=== PATIENT | male | born 1945 | race African-American/Black ===

== ENCOUNTER 2018-03-07 10:55 | Inpatient (IN) | payer OTHER ==
[~2018-03-07] VITALS: Ht 152.4 cm; Wt 127.0 kg
--- NOTE | ~2018-03-07 | EKG ---
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
--- NOTE | ~2018-03-07 | 2DMMODE ---
[facility] [address] [place] [address] 2 D/M-MODE ECHOCARDIOGRAM Name: ALFA LORENZ Room #: 458-P [facility]#: [id number] Admission: 03/07/18 Attend Phys: Bakari Joy MD Discharge: Date of : 47 Date of Service: 03/08/18 1125 Report #: [id number] THIS REPORT FOR: //name// APPROVED REPORT Study performed: 03/08/2018 10:14:21 EXAM: Comprehensive 2D, Doppler, and color-flow Echocardiogram Patient Location: Bedside Room #: [facility] Status: routine BSA: 2.46 HR: 90 bpm BP: 152/71 mmHg Other Information Study Quality: Technically Difficult Technically limited study due to body habitus. Indications COPD Diabetes Dyspnea CAD Hypertension/HDD Elevated BNP, history [place] Echo Enhancing Agent Indication: Endocardial border delineation Agent(s) / Amount(s) Used: Optison 3 cc 2D Dimensions RVDd: 44.11 mm LVEF(%): 35.40 (>50%) IVSd: 17.98 (7-11mm) LVOT Diam: 22.19 (18-24mm) LVDd: 46.01 mm PWd: 17.17 (7-11mm) LVDs: 38.24 (25-40mm) Aortic Root: 30.15 mm IVC: 23.00 mm Evans's LVEF: 35.40 % Volumes Left Atrial Volume (Systole) Single Plane 4CH: 76.62 mL Single Plane 2CH: 82.46 mL LA ESV Index: 37.00 mL/m2 [facility] [place] [address] [address] 2 D/M-MODE ECHOCARDIOGRAM Name: ALFA LORENZ Room #: 458-P [facility]#: [id number] Admission: 03/07/18 Attend Phys: Bakari Joy MD Discharge: Date of : 47 Date of Service: 03/08/18 1125 Report #: [id number] Aortic Valve AoV Peak David.: 1.40 m/s AO Peak Gr.: 7.87 mmHg LVOT Max P.21 mmHg LVOT Max V: 0.90 m/s CHELE Vmax: 2.47 cm2 Mitral Valve E/A Ratio: 1.4 MV Decel. Time: 193.92 ms MV E Max David.: 1.25 m/s MV A David.: 0.92 m/s MV PHT: 56.24 ms IVRT: 59.98 ms Pulmonary Valve PV Peak David.: 1.13 m/s PV Peak Gr.: 5.11 mmHg Pulmonary Vein P Vein S: 0.78 m/s P Vein A: 0.18 m/s P Vein D: 0.73 m/s P Vein A Dur.: 134.9 msec P Vein S/D Ratio: 1.07 Tricuspid Valve TR Peak David.: 3.61 m/s RAP Estimate: 10.00 mmHg TR Peak Gr.: 52.11 mmHg PA Pressure: 62.00 mmHg Left Ventricle The left ventricle is normal size. Moderate concentric left ventricular hypertrophy. Left ventricular systolic function is borderline. LVEF is 45-50%. Moderate diastolic dysfunction is present (pseudonormal filling). Right Ventricle Right ventricle is dilated. The right ventricular systolic function is normal. Atria Left atrium is dilated. Right atrium is dilated. Aortic Valve The aortic valve is normal in structure. No aortic regurgitation is present. There is no aortic valvular stenosis. Mitral Valve [facility] [address] [place] [address] 2 D/M-MODE ECHOCARDIOGRAM Name: GERDAALFA Room #: 458-P [facility].#: [id number] Admission: 03/07/18 Attend Phys: Bakari Joy MD Discharge: Date of : 47 Date of Service: 03/08/18 1125 Report #: [id number] The mitral valve is normal in structure. Moderate mitral regurgitation. No evidence of mitral valve stenosis. Tricuspid Valve The tricuspid valve is normal in structure. Mild tricuspid regurgitation. PAP is estimated at 62 mmHg. Pulmonic Valve Pulmonic valve is not well visualized. There is no pulmonic valvular regurgitation visualized. Great Vessels The aortic root is normal in size. IVC is dilated and collapses >50% with inspiration. Pericardium There is no pericardial effusion. <Conclusion> The left ventricle is normal size. LVEF is 45-50%. Right ventricle is dilated. The right ventricular systolic function is normal. Left atrium is dilated. Right atrium is dilated. The aortic valve is normal in structure. The mitral valve is normal in structure. Moderate mitral regurgitation. The tricuspid valve is normal in structure. Mild tricuspid regurgitation. PAP is estimated at 62 mmHg. Pulmonic valve is not well visualized. There is no pericardial effusion. <ELECTRONICALLY SIGNED> By: Phani Villatoro MD 03/08/18 1125 1125 1125 Phani Villatoro MD /INF
[~2018-03-07 10:55] MED LIST: ASPIRIN EC81 M1; CARVEDILOL3.125 MG; KEFLEX500 MG PO; LISINOPRIL2.5 MG; PLAVIX 75 MG TA75 M1; SIMVASTATIN5 MG; ZANTAC 25MG2.5 MG/M1
[2018-03-07 10:56] VITALS: BP 165/77
[2018-03-07 11:31] LABS: HEMATOCRIT 44.6 % (42.0-52.0); HEMOGLOBIN 14.8 gm/dL (14.0-18.0); MCH 31.6 pg (26.0-34.0); MCHC 33.1 g/dL (28.0-37.0); MCV 95.5 fL (80.0-100.0); RBC 4.68 mil/uL (4.50-6.00); RDW 14.4 % (10.5-14.5); WBC 4.6 thou/uL (4.0-11.0)
[2018-03-07 11:38] LABS: ANION GAP 9 mmol/L (7-16); BUN 16 mg/dL (7-18); CALCIUM 8.6 mg/dL (8.5-10.1); CHLORIDE 108 mmol/L (98-107); CO2 25 mmol/L (21-32); GLUCOSE 188 mg/dL (74-106); SODIUM 142 mmol/L (136-145)
[2018-03-07 11:47] LABS: TROPONIN-I < 0.04 ng/mL (<0.06)
[2018-03-07 11:51] LABS: BE(vivo) -1.6 mmol/L (-2 to +3); HCO3 23.9 mmol/L (22.0-26.0); PCO2 43.1 mmHg (35.0-45.0); PO2 56.9 mmHg (80.0-100.0); pH 7.362 (7.360-7.450); sO2 88.6 % (92.0-98.0)
[2018-03-07] MEDS ORDERED: ATORVASTATIN CA80 MG PO (12:45)
[2018-03-07] MEDS ORDERED: ZANTAC 150MG T150 M1 PO (12:46)
[2018-03-07] MEDS ORDERED: SYNTHROID50 MCG PO (12:47)
[2018-03-07 13:08] VITALS: BP 165/77
[2018-03-07 16:00] VITALS: BP 176/101
[2018-03-07 18:07] VITALS: BP 156/89
[2018-03-07 20:26] VITALS: BP 157/87
[2018-03-08 00:21] VITALS: BP 139/79
[2018-03-08 04:43] VITALS: BP 152/71
[2018-03-08 06:28] LABS: ABSOLUTE NEUTROPHILS 9.8 thou/uL (1.4-8.2); BASOPHILS 0.1 % (0.0-2.0); HEMATOCRIT 45.6 % (42.0-52.0); HEMOGLOBIN 15.3 gm/dL (14.0-18.0); LYMPHOCYTES 6.5 % (24.0-44.0); MCH 31.9 pg (26.0-34.0); MCHC 33.6 g/dL (28.0-37.0); MCV 94.8 fL (80.0-100.0); MONOCYTES 1.6 % (1.0-8.0); PLATELET COUNT 109 thou/uL (150-400); POLYS 91.8 % (36.0-66.0); RBC 4.81 mil/uL (4.50-6.00); RDW 14.4 % (10.5-14.5); WBC 10.7 thou/uL (4.0-11.0)
[2018-03-08 06:46] LABS: CALCIUM 9.2 mg/dL (8.5-10.1); CREATININE 0.8 mg/dL (0.7-1.3); MAGNESIUM 1.8 mg/dL (1.8-2.4); POTASSIUM 3.9 mmol/L (3.5-5.1)
[2018-03-08] MEDS ORDERED: ANORO ELLIPTA1 EACH INH (07:11)
[2018-03-08 08:00] VITALS: BP 147/58
[2018-03-08 15:54] VITALS: BP 133/65
[2018-03-08 19:55] VITALS: BP 135/69
[2018-03-09 00:26] VITALS: BP 131/66
[2018-03-09 04:14] VITALS: BP 139/94
[2018-03-09 07:40] VITALS: BP 158/97
[2018-03-09 09:47] LABS: ABSOLUTE NEUTROPHILS 15.7 thou/uL (1.4-8.2); BASOPHILS 0.1 % (0.0-2.0); HEMATOCRIT 48.8 % (42.0-52.0); LYMPHOCYTES 3.6 % (24.0-44.0); MCH 31.4 pg (26.0-34.0); MCHC 32.9 g/dL (28.0-37.0); MCV 95.4 fL (80.0-100.0); MONOCYTES 1.3 % (1.0-8.0); PLATELET COUNT 123 thou/uL (150-400); RBC 5.11 mil/uL (4.50-6.00); RDW 14.8 % (10.5-14.5); WBC 16.5 thou/uL (4.0-11.0)
[2018-03-09 10:00] LABS: CALCIUM 9.3 mg/dL (8.5-10.1); CREATININE 1.2 mg/dL (0.7-1.3)
[2018-03-09] MEDS ORDERED: VENTOLIN HFA 1818 GM INH (12:47)
[2018-03-09] MEDS ORDERED: PREDNISONE 10 M10 MG PO (12:47)
[2018-03-09] MEDS ORDERED: LASIX 20 MG TAB20 MG PO (12:48)
[2018-03-09 14:01] VITALS: BP 158/97
== END 2018-03-09 15:18 | disposition home or self-care (01) | DRG 291 ==
LOC: ER 10:55 → EROBS 13:01 → 4W 13:01
PROVIDERS: Emergency Medicine; Hospitalist; Nurse Practitioner
PROC: 5A09357 Assistance with Respiratory Ventilation, Less than 24 Consecutive Hours, Continuous Positive Airway Pressure (ICD-10-PCS; principal; 2018-03-08)
DX: I11.0 Hypertensive heart disease with heart failure (principal); J96.01 Acute respiratory failure with hypoxia; J44.1 Chronic obstructive pulmonary disease with (acute) exacerbation; E78.5 Hyperlipidemia, unspecified; I25.10 Atherosclerotic heart disease of native coronary artery without angina pectoris; E11.9 Type 2 diabetes mellitus without complications; E03.9 Hypothyroidism, unspecified; H26.9 Unspecified cataract; D69.6 Thrombocytopenia, unspecified; E78.00 Pure hypercholesterolemia, unspecified; I50.33 Acute on chronic diastolic (congestive) heart failure; I25.2 Old myocardial infarction; Z98.61 Coronary angioplasty status; Z79.899 Other long term (current) drug therapy; Z79.82 Long term (current) use of aspirin; Z87.891 Personal history of nicotine dependence; Z90.49 Acquired absence of other specified parts of digestive tract
CPT/HCPCS: 10045

== ENCOUNTER 2018-08-23 21:23 | Emergency (ER) | payer OTHER ==
[~2018-08-23] VITALS: Ht 182.9 cm; Wt 121.6 kg
--- NOTE | ~2018-08-23 | EKG ---
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 : 1945 Requested By: Terrell Root Order Number: [id number] MD: Sandeep Cabral Measurements Intervals [place] Rate: 70 P: 42 AL: 154 QRS: -9 QRSD: 113 T: 48 QT: 408 QTc: 441 Interpretive Statements Sinus rhythm Multiple premature complexes, vent & supraven Inferior infarct, old Compared to ECG 03/07/2018 11:12:29 No significant change was found Electronically Signed On 08-24-2018 7:50:34 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
[~2018-08-23 21:23] MED LIST changes: +ANORO ELLIPTA1 EACH INH; +ATORVASTATIN CA80 MG PO; +LASIX 20 MG TAB20 MG PO; +PREDNISONE 10 M10 MG PO; +SYNTHROID50 MCG PO; +VENTOLIN HFA 1818 GM INH; +ZANTAC 150MG T150 M1 PO
[2018-08-23 21:53] LABS: ABSOLUTE NEUTROPHILS 3.2 thou/uL (1.4-8.2); BASOPHILS 0.7 % (0.0-2.0); HEMATOCRIT 47.1 % (42.0-52.0); HEMOGLOBIN 16.1 gm/dL (14.0-18.0); LYMPHOCYTES 32.8 % (24.0-44.0); MCH 32.7 pg (26.0-34.0); MCHC 34.1 g/dL (28.0-37.0); MCV 95.9 fL (80.0-100.0); MONOCYTES 9.8 % (1.0-8.0); PLATELET COUNT 126 thou/uL (150-400); POLYS 52.7 % (36.0-66.0); RBC 4.91 mil/uL (4.50-6.00); RDW 13.6 % (10.5-14.5)
[2018-08-23 22:00] LABS: ANION GAP 10 mmol/L (7-16); BUN 16 mg/dL (7-18); CALCIUM 9.9 mg/dL (8.5-10.1); CHLORIDE 104 mmol/L (98-107); CO2 26 mmol/L (21-32); GLUCOSE 101 mg/dL (74-106); POTASSIUM 4.4 mmol/L (3.5-5.1); SODIUM 140 mmol/L (136-145)
[2018-08-23 22:07] LABS: APTT 29.2 Seconds (24.5-32.8); INR 1.1; PROTIME 11.2 Seconds (9.3-11.4)
[2018-08-23 22:09] LABS: ALBUMIN 3.7 g/dL (3.4-5.0); LIPASE 485 U/L (73-393); SGOT 20 U/L (15-37); SGPT 29 U/L (30-65); TOTAL BILIRUBIN 0.4 mg/dL (<0.1-1.0); TOTAL PROTEIN 7.9 g/dL (6.4-8.2); TROPONIN-I <0.06 ng/mL (<0.06)
[2018-08-24] MEDS ORDERED: PRILOSEC 20 MG20 MG PO (00:27)
[2018-08-24] MEDS ORDERED: TRAMADOL 50 MG50 MG PO (00:27)
[2018-08-24] MEDS ORDERED: ZOFRAN8 MG PO (00:27)
[2018-08-24 01:17] VITALS: BP 152/94
== END 2018-08-24 01:17 | disposition home or self-care (01) ==
LOC: ER 21:23
PROVIDERS: Emergency Medicine
DX: K85.90 Acute pancreatitis without necrosis or infection, unspecified (principal); K59.00 Constipation, unspecified; J44.9 Chronic obstructive pulmonary disease, unspecified; G47.33 Obstructive sleep apnea (adult) (pediatric); E78.5 Hyperlipidemia, unspecified; E11.9 Type 2 diabetes mellitus without complications; I25.10 Atherosclerotic heart disease of native coronary artery without angina pectoris; I11.0 Hypertensive heart disease with heart failure; I50.9 Heart failure, unspecified; E03.9 Hypothyroidism, unspecified; K21.9 Gastro-esophageal reflux disease without esophagitis; Z79.899 Other long term (current) drug therapy